=== PATIENT | female | born 1960 | race American Indian/Alaskan Native ===

== ENCOUNTER 2017-08-28 12:44 | Emergency (ER) | payer MEDICAID ==
[2017-08-28 12:50] VITALS: BP 137/92
--- NOTE | 2017-08-28 13:12 | EDM.PDOC ---
ED HPI GENERAL MEDICAL PROBLEM - General Stated Complaint: [id number] CHEST PAIN Time Seen by Provider: 08/28/17 13:06 Source of Information: Reports: Patient History Limitations: Reports: No Limitations - History of Present Illness INITIAL COMMENTS - FREE TEXT/NARRATIVE: Patient comes emergency department today with complaints of an injury to her left chest. The timing of the injury is uncertain if she changes her story between nurse myself and the [employer]. She tells me that 2 days ago she fell and injured her ribs. She tells the nursing staff that she fell 2 weeks ago. She does have a history of RA and walks with a walker and lost her balance and fell landing on her left ribs. She did not hit her head neck or back she denies any neck or back pain. She denies any loss of consciousness. She has been taking Tylenol for the pain. Has not been doing much for the pain. She has not applied any ice. She has had no shortness of breath fever cough or congestion. No abdominal pain nausea or vomiting. No black or tarry stools. Left Flank Pain Score (Numeric/FACES): 8 - Related Data Allergies Allergy/AdvReac Type Severity Reaction Status Date / Time No Known Allergies Allergy Verified 10/11/15 09:59 Home Meds: Home Meds Multivitamin [Multi Vitamin Daily] 1 each PO DAILY 01/22/13 [History] prednisoLONE [Prednisolone] 10 mg PO DAILY 01/22/13 [History] Bismuth Subsalicylate [Pepto Bismol] 30 ml PO ASDIRECTED PRN 01/09/14 [History] Past Medical History HEENT History: Reports: Impaired Vision Cardiovascular History: Reports: Hypertension Respiratory History: Reports: None Gastrointestinal History: Reports: None Genitourinary History: Reports: None DEPUTY CORONER History: Reports: None Musculoskeletal History: Reports: RA Neurological History: Reports: None Psychiatric History: Reports: None Endocrine/Metabolic History: Reports: None Hematologic History: Reports: None Immunologic History: Reports: None Oncologic (Cancer) History: Reports: None Dermatologic History: Reports: None Social & Family History - Family History Family Medical History: Noncontributory - Living Situation & Occupation Living situation: Reports: with Family ED ROS GENERAL - Review of Systems Review Of Systems: ROS reveals no pertinent complaints other than HPI. ED EXAM, GENERAL - Physical Exam Exam: See Below Exam Limited By: No Limitations General Appearance: Alert Eye Exam: Bilateral Eye: Normal Inspection Ears: Normal External Exam Nose: Normal Inspection Throat/Mouth: Normal Inspection Head: Atraumatic, Normocephalic Neck: Normal Inspection, Supple Respiratory/Chest: No Respiratory Distress, No Accessory Muscle Use, Decreased Breath Sounds (In the left lower base.), Crackles (Left lower base. No wheezing) , Splinting. No: Lungs Clear, Normal Breath Sounds, Rhonchi, Wheezing, Accessory Muscle Use, Retractions Cardiovascular: Normal Peripheral Pulses, Regular Rate, Rhythm Peripheral Pulses: 2+: Radial (L), Radial (R) GI/Abdominal: Normal Bowel Sounds, Soft, Non-Tender, No Organomegaly, No Distention, No Abnormal Bruit, No Mass, Pelvis Stable (Female) Exam: Deferred Rectal (Female) Exam: Deferred Back Exam: Normal Inspection, Full Range of Motion Extremities: Normal Inspection, Normal Range of Motion, Normal Capillary Refill , Other (Other than chronic changes of rheumatoid arthritis of her hands.) Neurological: Alert, Oriented, No Motor/Sensory Deficits Psychiatric: Flat Affect Skin Exam: Warm, Dry, Intact, Normal Color Course - Vital Signs Last Recorded V/S: Last Vital Signs Temp 36.9 C 08/28/17 12:49 Pulse 109 H 08/28/17 12:49 Resp 18 08/28/17 12:49 BP 137/92 H 08/28/17 12:49 Pulse Ox 96 08/28/17 12:49 - Radiology Interpretation Free Text/Narrative:: Chest x-ray with rib detail per radiology subtle irregularities anterior left sixth and seventh ribs that could represent occult nondisplaced fractures. Underlying left lobe atelectasis or fibrosis no pneumothorax. - Re-Assessments/Exams Free Text/Narrative Re-Assessment/Exam: 08/28/17 14:52 I did talk to the patient about the importance of incentive spirometry to prevent infection. I will send her home with some pain medication to make sure that she is turning, deep breathing as well as doing her incentive spirometry. She is to recheck if she develops a fever or cough or shortness of breath. Departure - Departure Time of Disposition: 14:42 Disposition: Home, Self-Care 01 Clinical Impression: Ribs, multiple fractures Qualifiers: Encounter type: initial encounter Fracture type: closed Laterality: left Qualified Code(s): S22.42XA - Multiple fractures of ribs, left side, initial encounter for closed fracture - Discharge Information *PRESCRIPTION DRUG MONITORING PROGRAM REVIEWED*: Yes *COPY OF PRESCRIPTION DRUG MONITORING REPORT IN PATIENT CARLOZ: No Instructions: Rib Fracture, [id number], Incentive Spirometer, Pain Medicine Instructions, [id number] Additional Instructions: Ice to the sore areas. Tylenol and or Ibuprofen as needed for pain. If pain not controlled with above. [place] 1/2-1 tablet every 4-6 hrs as needed for pain. Caution sedation. RX given to the patient. Incentive spirometry 6 times a day to prevent pneumonia. Turn cough deep breath when ever able to many times a day. If fever or respiratory distress develops recheck with a provider. Return to the ED if new or worsening symptoms. Follow up with primary care in the next 4-6 days if not improving sooner if worse. - Assessment/Plan Assessment:: Left rib fractures 7th. Contusion to the chest wall. Plan: Ice to the sore areas. Tylenol and or Ibuprofen as needed for pain. If pain not controlled with above. [place] 1/2-1 tablet every 4-6 hrs as needed for pain. Caution sedation. RX given to the patient. Incentive spirometry 6 times a day to prevent pneumonia. Turn cough deep breath when ever able to many times a day. If fever or respiratory distress develops recheck with a provider. Return to the ED if new or worsening symptoms. Follow up with primary care in the next 4-6 days if not improving sooner if worse.
--- NOTE | 2017-08-28 14:23 | CR ---
Clinical history: 57-year-old female complaining of left rib pain (fall). Interpretation: Apparent nondisplaced fractures (age uncertain) anterolateral left sixth and anterior left seventh ribs with some underlying patchy atelectasis (postinflammatory fibrosis?), Left lower l obe. Osteopenia and mild scoliosis with subtle compression T7 vertebral body (associated disc degeneration T7-8). Normal cardiac silhouette and pulmonary vascularity without alveolar edema or dependent effusion. Note: This patient had a dense pneumonic like consolidation in the left lower lobe 05 December 2008 i. e. some of what I am seeing could represent postinflammatory scarring left lung base. No lung mass or focal lobar pneumonia. No pneumothorax. CONCLUSION: Subtle irregularities anterior left sixth and seventh ribs (see above) that could represe nt occult nondisplaced fractures. Underlying left lower lobe atelectasis or fibrosis. No pneumothorax .
[2017-08-28] MEDS ORDERED: Acetaminophen/oxyCODONE 325-5 MG Tab PO ONE (15:09)
== END 2017-08-28 14:57 | disposition home or self-care (01) ==
LOC: DL.ED 12:44
DX: S22.42XA Multiple fractures of ribs, left side, initial encounter for closed fracture (principal); I10 Essential (primary) hypertension; W19.XXXA Unspecified fall, initial encounter; Z79.899 Other long term (current) drug therapy; Z88.8 Allergy status to other drugs, medicaments and biological substances
CPT/HCPCS: 71101-LT; 94010; 99283